=== PATIENT | female | born 1965 | race Caucasian/White ===

== ENCOUNTER → 2021-04-17 10:45 | Outpatient (CLI) | payer BC, SELFPAY ==
[2021-04-18 03:59] LABS: SARS-CoV-2 RNA PCR Negative
== END ==
PROVIDERS: PCP Family Medicine Adolescent Medicine; Visit Provider Family Medicine Adolescent Medicine
DX: R05.9 Cough, unspecified (principal); Z20.822 Contact with and (suspected) exposure to COVID-19
CPT/HCPCS: C9803; U0003; U0005